=== PATIENT | female | born 2000 | race Asian ===

== ENCOUNTER 2024-11-01 09:30 | Emergency (ER) | payer OTHER ==
[~2024-11-01] VITALS: Ht 172.7 cm; Wt 58.5 kg
[2024-11-01 10:21] LABS: HEMATOCRIT 42.2 % (36.0-47.0); HEMOGLOBIN 14.3 g/dl (12.0-15.5); MEAN CORPUSCULAR HEMOGLOBIN 31.9 pg (27.0-33.0); MEAN CORPUSCULAR HGB CONC 33.9 g/dl (32.0-36.5); MEAN CORPUSCULAR VOLUME 94.2 fl (80.0-96.0); PLATELET COUNT, AUTOMATED 261 10^3/uL (150-450); RED BLOOD COUNT 4.48 10^6/uL (4.00-5.40); WHITE BLOOD COUNT 7.8 10^3/uL (4.0-10.0)
[2024-11-01 10:50] LABS: AMPHETAMINES LEVEL URINE NEGATIVE (NEGATIVE); BARBITURATES URINE NEGATIVE (NEGATIVE); CANNABINOIDS URINE NEGATIVE (NEGATIVE); COCAINE METABOLITE URINE NEGATIVE (NEGATIVE); METHADONE URINE NEGATIVE (NEGATIVE); OPIATES URINE NEGATIVE (NEGATIVE); PHENCYCLIDINE URINE NEGATIVE (NEGATIVE)
[2024-11-01 10:51] LABS: BENZODIAZEPINES URINE NEGATIVE (NEGATIVE); ETHYL ALCOHOL (ETHANOL) < 0.003 % (0.000-0.010)
[2024-11-01 10:52] LABS: SALICYLATE LEVEL < 3.0 MG/DL (<30)
[2024-11-01 10:53] LABS: ALBUMIN 4.5 G/DL (3.2-5.2); ALKALINE PHOSPHATASE 78 U/L (35-104); ALT/SGPT 24 U/L (7.0-40); AST/SGOT 22 U/L (<34); BILIRUBIN,DIRECT 0.2 MG/DL (<0.4); BILIRUBIN,TOTAL 0.6 MG/DL (0.3-1.2); BLOOD UREA NITROGEN 12 MG/DL (9-23); CALCIUM LEVEL 9.7 MG/DL (8.5-10.1); CARBON DIOXIDE LEVEL 26 MMOL/L (20-31); CHLORIDE LEVEL 103 MMOL/L (98-107); CREATININE FOR GFR 0.67 MG/DL (0.55-1.30); GLOMERULAR FILTRATION RATE > 90.0 (>60); GLUCOSE, FASTING 92 MG/DL (60-100); POTASSIUM SERUM 3.6 MMOL/L (3.5-5.1); SODIUM LEVEL 139 MMOL/L (136-145); TOTAL PROTEIN 8.3 G/DL (5.7-8.2)
[2024-11-01 10:55] LABS: HCG, SERUM QUALITATIVE NEGATIVE (NEGATIVE)
[2024-11-01 10:57] LABS: THYROID STIMULATING HORMONE 2.918 uIU/ML (0.55-4.78)
[2024-11-01 11:31] VITALS: TEMP 98.2
[2024-11-01 13:13] VITALS: BP 110/63; O2SAT 99
== END 2024-11-01 13:15 | disposition home or self-care (01) ==
LOC: EDBD 09:30 → M ED 09:30
DX: R53.1 Weakness (principal); Z87.891 Personal history of nicotine dependence

== ENCOUNTER 2025-06-22 16:32 | Emergency (ER) | payer OTHER ==
[~2025-06-22] VITALS: Ht 170.2 cm; Wt 59.0 kg
[2025-06-22] MEDS ORDERED: HOME MED LIST COMPLETE! XX SCH (17:15)
[2025-06-22 17:33] LABS: PLATELET COUNT, AUTOMATED 261 10^3/uL (150-450)
[2025-06-22 17:54] LABS: AMPHETAMINES LEVEL URINE NEGATIVE (NEGATIVE); BARBITURATES URINE NEGATIVE (NEGATIVE); BENZODIAZEPINES URINE NEGATIVE (NEGATIVE); CANNABINOIDS URINE NEGATIVE (NEGATIVE); COCAINE METABOLITE URINE NEGATIVE (NEGATIVE); METHADONE URINE NEGATIVE (NEGATIVE); OPIATES URINE NEGATIVE (NEGATIVE); PHENCYCLIDINE URINE NEGATIVE (NEGATIVE)
[2025-06-22 17:56] LABS: ETHYL ALCOHOL (ETHANOL) < 0.003 % (0.000-0.010); HCG, SERUM QUALITATIVE NEGATIVE (NEGATIVE)
[2025-06-22 17:57] LABS: SALICYLATE LEVEL < 3.0 MG/DL (<30)
[2025-06-22 17:58] LABS: ALT/SGPT 13 U/L (7.0-40); AST/SGOT 18 U/L (<34); CALCIUM LEVEL 9.4 MG/DL (8.5-10.1); CARBON DIOXIDE LEVEL 27 MMOL/L (20-31); CHLORIDE LEVEL 103 MMOL/L (98-107); CREATININE FOR GFR 0.62 MG/DL (0.55-1.30); GLOMERULAR FILTRATION RATE > 90.0 (>60); POTASSIUM SERUM 4.0 MMOL/L (3.5-5.1); SODIUM LEVEL 138 MMOL/L (136-145)
[2025-06-22 19:11] VITALS: BP 117/60; TEMP 98.6; O2SAT 100
== END 2025-06-22 19:41 | disposition home or self-care (01) ==
LOC: M ED 16:32
DX: F43.10 Post-traumatic stress disorder, unspecified (principal)